=== PATIENT | male | born 1950 | race Caucasian/White ===

== ENCOUNTER 2017-04-12 19:07 | Inpatient (IN) | payer MEDICARE ==
[2017-04-12] MEDS ORDERED: GLUCOSE GEL 15 GRAM TUBE PO ×2 (21:30)
[2017-04-12] MEDS ORDERED: GLUCAGON 1 MG INJ IM (21:30)
[2017-04-12] MEDS ORDERED: ONDANSETRON 4 MG TAB PO (21:30)
[2017-04-12] MEDS ORDERED: GLUCOSE GEL 15 GRAM TUBE BUCCAL (21:30)
[2017-04-12] MEDS ORDERED: MAGNESIUM HYDROXIDE 30ML CUP PO (21:30)
[2017-04-12] MEDS ORDERED: BISACODYL 10 MG SUPP PR (21:30)
[2017-04-12] MEDS ORDERED: LACTULOSE 30ML CUP PO (21:30)
[2017-04-12] MEDS ORDERED: DEXTROSE 50% 50 ML SYRINGE IV ×2 (21:30)
[2017-04-12] MEDS: DOCUSATE SODIUM 100 MG CAP PO (21:46)
[2017-04-12] MEDS: SENNA TAB PO (21:47)
[2017-04-12] MEDS: Insulin NOVOLOG SS MILD Algorithm (SS with meals and bedtime) SC (21:47)
[2017-04-12] MEDS: ZOLPIDEM 5 MG TAB PO (21:50)
[2017-04-12] MEDS: ATORVASTATIN 40 MG TAB PO (21:50)
[2017-04-12] MEDS ORDERED: ACCU-CHEK BARLOW XX (22:00)
[2017-04-12 22:58] LABS: ADD UMIC NO; UR ASCORBIC ACID NEGATIVE (NEGATIVE); UR BILIRUBIN (Dip) NEGATIVE (NEGATIVE); UR BLOOD (Dip) NEGATIVE (NEGATIVE); UR CLARITY CLEAR (CLEAR); UR COLOR YELLOW (YELLOW); UR GLUCOSE (Dip) 1+ mg/dL (NEGATIVE); UR KETONES (Dip) NEGATIVE (NEGATIVE); UR LEUKOCYTE ESTERASE (Dip) NEGATIVE Leu/ul (NEGATIVE); UR NITRITE (Dip) NEGATIVE (NEGATIVE); UR TOTAL PROTEIN (Dip) NEGATIVE (NEGATIVE); UR UROBILINOGEN (Dip) NEGATIVE (NEGATIVE)
[2017-04-13] MEDS: ACCUCHECK AT 2AM (Patients on SS coverage) XX (02:00)
[2017-04-13 06:33] LABS: ADD MAN DIFF? NO
[2017-04-13 06:42] LABS: BASOPHIL # 0.1 10^3/ul (0.0-0.1); EOSINOPHILS # 0.4 10^3/ul (0.0-0.5); EOSINOPHILS % 5.6 % (0.0-7.0); HEMATOCRIT 41.4 % (42.0-52.0); HEMOGLOBIN 13.6 g/dl (14.0-18.0); LYMPHOCYTES # 1.2 10^3/ul (0.8-2.9); LYMPHOCYTES % 16.8 % (15.0-51.0); MEAN CORPUSCULAR HEMOGLOBIN 26.9 pg (29.0-33.0); MEAN CORPUSCULAR HGB CONC 32.9 g/dl (32.0-37.0); MEAN CORPUSCULAR VOLUME 81.8 fl (82.0-101.0); MEAN PLATELET VOLUME 9.9 fl (7.4-10.4); MONOCYTE # 0.9 10^3/ul (0.3-0.9); MONOCYTES % 11.8 % (0.0-11.0); NEUTROPHIL # 4.6 10^3/ul (1.6-7.5); NEUTROPHILS % 63.8 % (39.0-77.0); PLATELET COUNT 346 10^3/UL (140-415); RED BLOOD COUNT 5.06 10^6/ul (4.70-6.10); RED CELL DISTRIBUTION WIDTH 13.5 % (11.5-14.5)
[2017-04-13 06:42] LABS: WHITE BLOOD COUNT 7.2 10^3/ul (4.8-10.8)
[2017-04-13] MEDS: PANTOPRAZOLE (EC) 40 MG TAB PO (06:45)
[2017-04-13] MEDS: Insulin NOVOLOG SS MILD Algorithm (SS with meals and bedtime) SC ×4 (07:05→21:00)
[2017-04-13 07:19] LABS: ALANINE AMINOTRANSFERASE 32 IU/L (13-69); ALBUMIN 3.7 g/dl (3.3-4.9); ALBUMIN/GLOBULIN RATIO 1.37; ALKALINE PHOSPHATASE 53 IU/L (42-121); ANION GAP 14 (8-16); ASPARTATE AMINO TRANSFERASE 19 IU/L (15-46); BILIRUBIN,INDIRECT 0.2 mg/dl (0-1.1); BILIRUBIN,TOTAL 0.2 mg/dl (0.2-1.3); BLOOD UREA NITROGEN 20 mg/dl (7-20); CALCIUM 8.8 mg/dl (8.4-10.2); CARBON DIOXIDE 24 mmol/L (21-31); CHLORIDE 109 mmol/L (97-110); CREATININE 1.31 mg/dl (0.61-1.24); GLUCOSE 110 mg/dl (70-220); POTASSIUM 4.3 mmol/L (3.5-5.1); SODIUM 143 mmol/L (135-144); TOTAL PROTEIN 6.4 g/dl (6.1-8.1)
[2017-04-13] MEDS: ASPIRIN 81 MG TAB PO (08:26)
[2017-04-13] MEDS: CLOPIDOGREL 75 MG TAB PO (08:26)
[2017-04-13] MEDS: DOCUSATE SODIUM 100 MG CAP PO ×2 (09:00→21:00)
[2017-04-13] MEDS: BACLOFEN 10 MG TAB PO ×2 (12:13→21:09)
[2017-04-13 13:21] LABS: HEMOGLOBIN A1C 6.7 % (0-5.9)
[2017-04-13] MEDS: ACETAMINOPHEN 325 MG TAB PO ×2 (17:17→23:09)
[2017-04-13] MEDS: SENNA TAB PO (21:00)
[2017-04-13] MEDS: ZOLPIDEM 5 MG TAB PO (21:09)
[2017-04-13] MEDS: ATORVASTATIN 40 MG TAB PO (21:09)
[2017-04-14] MEDS: ACCUCHECK AT 2AM (Patients on SS coverage) XX (02:00)
[2017-04-14] MEDS: PANTOPRAZOLE (EC) 40 MG TAB PO (06:20)
[2017-04-14] MEDS: Insulin NOVOLOG SS MILD Algorithm (SS with meals and bedtime) SC ×4 (08:31→20:16)
[2017-04-14] MEDS: ASPIRIN 81 MG TAB PO (08:40)
[2017-04-14] MEDS: BACLOFEN 10 MG TAB PO ×2 (08:40→20:42)
[2017-04-14] MEDS: CLOPIDOGREL 75 MG TAB PO (08:40)
[2017-04-14] MEDS: DOCUSATE SODIUM 100 MG CAP PO ×2 (08:40→20:55)
[2017-04-14] MEDS: ACETAMINOPHEN 325 MG TAB PO (15:11)
[2017-04-14] MEDS: ZOLPIDEM 5 MG TAB PO (20:42)
[2017-04-14] MEDS: ATORVASTATIN 40 MG TAB PO (20:42)
[2017-04-14] MEDS: SENNA TAB PO (20:56)
[2017-04-15] MEDS: ACCUCHECK AT 2AM (Patients on SS coverage) XX (02:00)
[2017-04-15] MEDS ORDERED: PENDING SANTYL ORDER FOR WOUND CARE XX (03:00)
[2017-04-15] MEDS: PANTOPRAZOLE (EC) 40 MG TAB PO (05:55)
[2017-04-15] MEDS: Insulin NOVOLOG SS MILD Algorithm (SS with meals and bedtime) SC ×4 (07:05→20:42)
[2017-04-15] MEDS: metFORMIN 500 MG TAB PO (08:51)
[2017-04-15] MEDS: CLOPIDOGREL 75 MG TAB PO (08:52)
[2017-04-15] MEDS: DOCUSATE SODIUM 100 MG CAP PO ×2 (08:52→20:41)
[2017-04-15] MEDS: ASPIRIN 81 MG TAB PO (08:52)
[2017-04-15] MEDS: BACLOFEN 10 MG TAB PO (20:35)
[2017-04-15] MEDS: ATORVASTATIN 40 MG TAB PO (20:35)
[2017-04-15] MEDS: ACETAMINOPHEN 325 MG TAB PO (20:38)
[2017-04-15] MEDS: SENNA TAB PO (20:41)
[2017-04-15] MEDS: ZOLPIDEM 5 MG TAB PO (22:16)
[2017-04-16] MEDS: ACCUCHECK AT 2AM (Patients on SS coverage) XX (02:00)
[2017-04-16] MEDS: PANTOPRAZOLE (EC) 40 MG TAB PO (06:12)
[2017-04-16] MEDS: Insulin NOVOLOG SS MILD Algorithm (SS with meals and bedtime) SC ×4 (07:05→21:00)
[2017-04-16] MEDS: metFORMIN 500 MG TAB PO (08:19)
[2017-04-16] MEDS: DOCUSATE SODIUM 100 MG CAP PO ×3 (08:20→21:00)
[2017-04-16] MEDS: CLOPIDOGREL 75 MG TAB PO (08:20)
[2017-04-16] MEDS: ASPIRIN 81 MG TAB PO (08:20)
[2017-04-16] MEDS: ACETAMINOPHEN 325 MG TAB PO ×2 (14:46→23:44)
[2017-04-16] MEDS: LIDOCAINE 5% PATCH TD (15:52)
[2017-04-16] MEDS: SENNA TAB PO (21:00)
[2017-04-16] MEDS: BACLOFEN 10 MG TAB PO (21:02)
[2017-04-16] MEDS: ATORVASTATIN 40 MG TAB PO (21:02)
[2017-04-16] MEDS: ZOLPIDEM 5 MG TAB PO (21:05)
[2017-04-17] MEDS: ACCUCHECK AT 2AM (Patients on SS coverage) XX (02:00)
[2017-04-17] MEDS: PANTOPRAZOLE (EC) 40 MG TAB PO (06:07)
[2017-04-17] MEDS: Insulin NOVOLOG SS MILD Algorithm (SS with meals and bedtime) SC ×4 (07:05→20:45)
[2017-04-17] MEDS: DOCUSATE SODIUM 100 MG CAP PO ×2 (08:21→20:46)
[2017-04-17] MEDS: CLOPIDOGREL 75 MG TAB PO (08:21)
[2017-04-17] MEDS: LIDOCAINE 5% PATCH TD (08:21)
[2017-04-17] MEDS: ASPIRIN 81 MG TAB PO (08:21)
[2017-04-17] MEDS: metFORMIN 500 MG TAB PO (08:22)
[2017-04-17] MEDS: BACLOFEN 10 MG TAB PO (20:44)
[2017-04-17] MEDS: ZOLPIDEM 5 MG TAB PO ×2 (20:44→21:54)
[2017-04-17] MEDS: ATORVASTATIN 40 MG TAB PO (20:44)
[2017-04-17] MEDS: SENNA TAB PO (20:46)
[2017-04-18] MEDS: ACCUCHECK AT 2AM (Patients on SS coverage) XX (02:00)
[2017-04-18] MEDS: PANTOPRAZOLE (EC) 40 MG TAB PO (06:27)
[2017-04-18] MEDS: Insulin NOVOLOG SS MILD Algorithm (SS with meals and bedtime) SC ×4 (07:05→21:00)
[2017-04-18] MEDS: metFORMIN 500 MG TAB PO (08:22)
[2017-04-18] MEDS: DOCUSATE SODIUM 100 MG CAP PO ×3 (08:23→19:40)
[2017-04-18] MEDS: CLOPIDOGREL 75 MG TAB PO (08:23)
[2017-04-18] MEDS: LIDOCAINE 5% PATCH TD (08:23)
[2017-04-18] MEDS: ASPIRIN 81 MG TAB PO (08:23)
[2017-04-18] MEDS: ACETAMINOPHEN 325 MG TAB PO (19:32)
[2017-04-18] MEDS: BACLOFEN 10 MG TAB PO (19:33)
[2017-04-18] MEDS: SENNA TAB PO (19:40)
[2017-04-18] MEDS: ATORVASTATIN 40 MG TAB PO (20:33)
[2017-04-18] MEDS: ZOLPIDEM 5 MG TAB PO (20:38)
[2017-04-19] MEDS: ACCUCHECK AT 2AM (Patients on SS coverage) XX (02:00)
[2017-04-19] MEDS: PANTOPRAZOLE (EC) 40 MG TAB PO (06:03)
[2017-04-19 07:00] LABS: ADD MAN DIFF? NO
[2017-04-19 07:04] LABS: WHITE BLOOD COUNT 7.9 10^3/ul (4.8-10.8)
[2017-04-19 07:04] LABS: BASOPHIL # 0.1 10^3/ul (0.0-0.1); BASOPHILS % 0.9 % (0.0-2.0); EOSINOPHILS # 0.5 10^3/ul (0.0-0.5); HEMATOCRIT 38.7 % (42.0-52.0); HEMOGLOBIN 12.6 g/dl (14.0-18.0); LYMPHOCYTES # 1.1 10^3/ul (0.8-2.9); LYMPHOCYTES % 13.8 % (15.0-51.0); MEAN CORPUSCULAR HEMOGLOBIN 26.9 pg (29.0-33.0); MEAN CORPUSCULAR HGB CONC 32.6 g/dl (32.0-37.0); MEAN CORPUSCULAR VOLUME 82.5 fl (82.0-101.0); MONOCYTE # 0.8 10^3/ul (0.3-0.9); MONOCYTES % 9.6 % (0.0-11.0); NEUTROPHIL # 5.4 10^3/ul (1.6-7.5); NEUTROPHILS % 69.1 % (39.0-77.0); PLATELET COUNT 410 10^3/UL (140-415); RED BLOOD COUNT 4.69 10^6/ul (4.70-6.10); RED CELL DISTRIBUTION WIDTH 13.5 % (11.5-14.5)
[2017-04-19] MEDS: Insulin NOVOLOG SS MILD Algorithm (SS with meals and bedtime) SC ×4 (07:05→20:33)
[2017-04-19 07:26] LABS: ANION GAP 14 (8-16); BLOOD UREA NITROGEN 19 mg/dl (7-20); CALCIUM 8.7 mg/dl (8.4-10.2); CARBON DIOXIDE 24 mmol/L (21-31); CHLORIDE 109 mmol/L (97-110); CREATININE 1.39 mg/dl (0.61-1.24); GLUCOSE 98 mg/dl (70-220); POTASSIUM 4.2 mmol/L (3.5-5.1); SODIUM 143 mmol/L (135-144)
[2017-04-19 07:29] LABS: PHOSPHORUS 3.6 mg/dl (2.5-4.9)
[2017-04-19] MEDS: ASPIRIN 81 MG TAB PO (08:36)
[2017-04-19] MEDS: DOCUSATE SODIUM 100 MG CAP PO ×2 (08:36→20:34)
[2017-04-19] MEDS: metFORMIN 500 MG TAB PO (08:36)
[2017-04-19] MEDS: CLOPIDOGREL 75 MG TAB PO (08:36)
[2017-04-19] MEDS: LIDOCAINE 5% PATCH TD (08:37)
[2017-04-19] MEDS: BACLOFEN 10 MG TAB PO (20:26)
[2017-04-19] MEDS: ATORVASTATIN 40 MG TAB PO (20:26)
[2017-04-19] MEDS: ZOLPIDEM 5 MG TAB PO (20:32)
[2017-04-19] MEDS: SENNA TAB PO (20:34)
[2017-04-20] MEDS: ACCUCHECK AT 2AM (Patients on SS coverage) XX (02:00)
[2017-04-20] MEDS: PANTOPRAZOLE (EC) 40 MG TAB PO (06:58)
[2017-04-20] MEDS: Insulin NOVOLOG SS MILD Algorithm (SS with meals and bedtime) SC ×4 (07:05→21:00)
[2017-04-20] MEDS: DOCUSATE SODIUM 100 MG CAP PO ×2 (08:29→20:40)
[2017-04-20] MEDS: ASPIRIN 81 MG TAB PO (08:29)
[2017-04-20] MEDS: metFORMIN 500 MG TAB PO (08:29)
[2017-04-20] MEDS: CLOPIDOGREL 75 MG TAB PO (08:29)
[2017-04-20] MEDS: LIDOCAINE 5% PATCH TD (08:29)
[2017-04-20] MEDS: HYDROCODONE/APAP (5/325) TAB GTB (14:42)
[2017-04-20] MEDS: ATORVASTATIN 40 MG TAB PO (20:32)
[2017-04-20] MEDS: BACLOFEN 10 MG TAB PO (20:32)
[2017-04-20] MEDS: ZOLPIDEM 5 MG TAB PO (20:37)
[2017-04-20] MEDS: SENNA TAB PO (20:40)
[2017-04-21] MEDS: ACCUCHECK AT 2AM (Patients on SS coverage) XX (02:00)
[2017-04-21] MEDS: PANTOPRAZOLE (EC) 40 MG TAB PO (06:32)
[2017-04-21] MEDS: Insulin NOVOLOG SS MILD Algorithm (SS with meals and bedtime) SC ×4 (07:05→20:41)
[2017-04-21] MEDS: metFORMIN 500 MG TAB PO (08:22)
[2017-04-21] MEDS: DOCUSATE SODIUM 100 MG CAP PO ×2 (09:00→20:39)
[2017-04-21] MEDS: CLOPIDOGREL 75 MG TAB PO (09:46)
[2017-04-21] MEDS: ASPIRIN 81 MG TAB PO (09:46)
[2017-04-21] MEDS: LIDOCAINE 5% PATCH TD (09:47)
[2017-04-21] MEDS: ATORVASTATIN 40 MG TAB PO (20:19)
[2017-04-21] MEDS: HYDROCODONE/APAP (5/325) TAB GTB (20:20)
[2017-04-21] MEDS: BACLOFEN 10 MG TAB PO (20:20)
[2017-04-21] MEDS: SENNA TAB PO (20:39)
[2017-04-22] MEDS: ACCUCHECK AT 2AM (Patients on SS coverage) XX (02:00)
[2017-04-22] MEDS: PANTOPRAZOLE (EC) 40 MG TAB PO (06:38)
[2017-04-22] MEDS: Insulin NOVOLOG SS MILD Algorithm (SS with meals and bedtime) SC ×3 (07:05→17:05)
[2017-04-22] MEDS: CLOPIDOGREL 75 MG TAB PO (08:36)
[2017-04-22] MEDS: ASPIRIN 81 MG TAB PO (08:36)
[2017-04-22] MEDS: metFORMIN 500 MG TAB PO (08:36)
[2017-04-22] MEDS: DOCUSATE SODIUM 100 MG CAP PO ×3 (08:38→21:00)
[2017-04-22] MEDS: LIDOCAINE 5% PATCH TD (10:33)
[2017-04-22] MEDS: BACLOFEN 10 MG TAB PO (20:56)
[2017-04-22] MEDS: ATORVASTATIN 40 MG TAB PO (20:56)
[2017-04-22] MEDS: ZOLPIDEM 5 MG TAB PO (20:58)
[2017-04-22] MEDS: SENNA TAB PO (21:00)
[2017-04-23] MEDS: ACCUCHECK AT 2AM (Patients on SS coverage) XX (02:00)
[2017-04-23] MEDS: PANTOPRAZOLE (EC) 40 MG TAB PO (06:34)
[2017-04-23] MEDS: INSULIN ASPART [NOVOLOG] 3 ML PEN SC (07:51)
[2017-04-23] MEDS: metFORMIN 500 MG TAB PO (08:37)
[2017-04-23] MEDS: LIDOCAINE 5% PATCH TD (08:37)
[2017-04-23] MEDS: CLOPIDOGREL 75 MG TAB PO (08:37)
[2017-04-23] MEDS: ASPIRIN 81 MG TAB PO (08:38)
[2017-04-23] MEDS: DOCUSATE SODIUM 100 MG CAP PO ×2 (08:39→20:59)
[2017-04-23] MEDS: ATORVASTATIN 40 MG TAB PO (20:57)
[2017-04-23] MEDS: BACLOFEN 10 MG TAB PO (20:58)
[2017-04-23] MEDS: HYDROCODONE/APAP (5/325) TAB GTB (20:58)
[2017-04-23] MEDS: ZOLPIDEM 5 MG TAB PO (20:58)
[2017-04-23] MEDS: SENNA TAB PO (20:59)
[2017-04-24] MEDS: ACCUCHECK AT 2AM (Patients on SS coverage) XX (03:00)
[2017-04-24] MEDS: PANTOPRAZOLE (EC) 40 MG TAB PO (06:16)
[2017-04-24] MEDS: INSULIN ASPART [NOVOLOG] 3 ML PEN SC (09:00)
[2017-04-24] MEDS: CLOPIDOGREL 75 MG TAB PO (09:00)
[2017-04-24] MEDS: DOCUSATE SODIUM 100 MG CAP PO ×3 (09:00→20:00)
[2017-04-24] MEDS: LIDOCAINE 5% PATCH TD (09:01)
[2017-04-24] MEDS: metFORMIN 500 MG TAB PO (09:01)
[2017-04-24] MEDS: ASPIRIN 81 MG TAB PO (09:01)
[2017-04-24] MEDS: ZOLPIDEM 5 MG TAB PO (19:59)
[2017-04-24] MEDS: HYDROCODONE/APAP (5/325) TAB GTB (20:00)
[2017-04-24] MEDS: BACLOFEN 10 MG TAB PO (20:00)
[2017-04-24] MEDS: ATORVASTATIN 40 MG TAB PO (20:00)
[2017-04-24] MEDS: SENNA TAB PO (20:01)
[2017-04-25] MEDS: ACCUCHECK AT 2AM (Patients on SS coverage) XX (02:00)
[2017-04-25] MEDS: PANTOPRAZOLE (EC) 40 MG TAB PO (06:20)
[2017-04-25 07:39] LABS: ADD MAN DIFF? NO
[2017-04-25 07:43] LABS: BASOPHIL # 0.1 10^3/ul (0.0-0.1); EOSINOPHILS # 0.5 10^3/ul (0.0-0.5); EOSINOPHILS % 7.1 % (0.0-7.0); HEMATOCRIT 37.9 % (42.0-52.0); HEMOGLOBIN 12.3 g/dl (14.0-18.0); LYMPHOCYTES # 1.3 10^3/ul (0.8-2.9); LYMPHOCYTES % 18.8 % (15.0-51.0); MEAN CORPUSCULAR HEMOGLOBIN 26.5 pg (29.0-33.0); MEAN CORPUSCULAR HGB CONC 32.5 g/dl (32.0-37.0); MEAN CORPUSCULAR VOLUME 81.7 fl (82.0-101.0); MEAN PLATELET VOLUME 9.8 fl (7.4-10.4); MONOCYTE # 0.7 10^3/ul (0.3-0.9); MONOCYTES % 10.5 % (0.0-11.0); NEUTROPHIL # 4.4 10^3/ul (1.6-7.5); NEUTROPHILS % 61.9 % (39.0-77.0); PLATELET COUNT 450 10^3/UL (140-415); RED BLOOD COUNT 4.64 10^6/ul (4.70-6.10); RED CELL DISTRIBUTION WIDTH 13.1 % (11.5-14.5)
[2017-04-25] MEDS: INSULIN ASPART [NOVOLOG] 3 ML PEN SC (08:07)
[2017-04-25 08:08] LABS: ANION GAP 16 (8-16); BLOOD UREA NITROGEN 18 mg/dl (7-20); CALCIUM 8.9 mg/dl (8.4-10.2); CARBON DIOXIDE 26 mmol/L (21-31); CHLORIDE 107 mmol/L (97-110); CREATININE 1.35 mg/dl (0.61-1.24); GLUCOSE 84 mg/dl (70-220); SODIUM 145 mmol/L (135-144)
[2017-04-25 08:10] LABS: MAGNESIUM 1.9 mg/dl (1.7-2.5)
[2017-04-25 08:10] LABS: PHOSPHORUS 3.9 mg/dl (2.5-4.9)
[2017-04-25] MEDS: LIDOCAINE 5% PATCH TD (08:57)
[2017-04-25] MEDS: metFORMIN 500 MG TAB PO (08:57)
[2017-04-25] MEDS: CLOPIDOGREL 75 MG TAB PO (08:57)
[2017-04-25] MEDS: ASPIRIN 81 MG TAB PO (08:57)
[2017-04-25] MEDS: DOCUSATE SODIUM 100 MG CAP PO ×2 (09:00→20:17)
[2017-04-25] MEDS: CARISOPRODOL 350 MG TAB PO (20:16)
[2017-04-25] MEDS: ATORVASTATIN 40 MG TAB PO (20:16)
[2017-04-25] MEDS: BACLOFEN 10 MG TAB PO (20:16)
[2017-04-25] MEDS: SENNA TAB PO (20:17)
[2017-04-25] MEDS: ZOLPIDEM 5 MG TAB PO (20:33)
[2017-04-26] MEDS: ACCUCHECK AT 2AM (Patients on SS coverage) XX (02:00)
[2017-04-26] MEDS: PANTOPRAZOLE (EC) 40 MG TAB PO (07:03)
[2017-04-26] MEDS: INSULIN ASPART [NOVOLOG] 3 ML PEN SC (08:07)
[2017-04-26] MEDS: ASPIRIN 81 MG TAB PO (08:08)
[2017-04-26] MEDS: CLOPIDOGREL 75 MG TAB PO (08:08)
[2017-04-26] MEDS: metFORMIN 500 MG TAB PO (08:08)
[2017-04-26] MEDS: LIDOCAINE 5% PATCH TD (08:09)
[2017-04-26] MEDS: DOCUSATE SODIUM 100 MG CAP PO ×2 (08:13→21:00)
[2017-04-26] MEDS: BACLOFEN 10 MG TAB PO ×2 (11:44→21:11)
[2017-04-26] MEDS: SENNA TAB PO (21:00)
[2017-04-26] MEDS: ATORVASTATIN 40 MG TAB PO (21:10)
[2017-04-26] MEDS: ZOLPIDEM 5 MG TAB PO (21:11)
[2017-04-27] MEDS: ACCUCHECK AT 2AM (Patients on SS coverage) XX (02:00)
[2017-04-27] MEDS: PANTOPRAZOLE (EC) 40 MG TAB PO (07:00)
[2017-04-27] MEDS: INSULIN ASPART [NOVOLOG] 3 ML PEN SC (08:11)
[2017-04-27] MEDS: CLOPIDOGREL 75 MG TAB PO (08:12)
[2017-04-27] MEDS: BACLOFEN 10 MG TAB PO ×2 (08:12→20:17)
[2017-04-27] MEDS: ASPIRIN 81 MG TAB PO (08:12)
[2017-04-27] MEDS: metFORMIN 500 MG TAB PO (08:12)
[2017-04-27] MEDS: LIDOCAINE 5% PATCH TD (08:14)
[2017-04-27] MEDS: DOCUSATE SODIUM 100 MG CAP PO ×2 (09:00→20:21)
[2017-04-27] MEDS: ZOLPIDEM 5 MG TAB PO (20:17)
[2017-04-27] MEDS: ATORVASTATIN 40 MG TAB PO (20:17)
[2017-04-27] MEDS: SENNA TAB PO (20:22)
[2017-04-28] MEDS: ACCUCHECK AT 2AM (Patients on SS coverage) XX (02:00)
[2017-04-28] MEDS: PANTOPRAZOLE (EC) 40 MG TAB PO (06:26)
[2017-04-28] MEDS: metFORMIN 500 MG TAB PO (08:04)
[2017-04-28] MEDS: INSULIN ASPART [NOVOLOG] 3 ML PEN SC (08:15)
[2017-04-28] MEDS: DOCUSATE SODIUM 100 MG CAP PO (09:00)
[2017-04-28] MEDS: CLOPIDOGREL 75 MG TAB PO (09:15)
[2017-04-28] MEDS: ASPIRIN 81 MG TAB PO (09:15)
[2017-04-28] MEDS: BACLOFEN 10 MG TAB PO (09:15)
[2017-04-28] MEDS: LIDOCAINE 5% PATCH TD (09:16)
== END 2017-04-28 13:00 | DRG 57 ==
LOC: VRC 04-18 12:44
PROC: F07Z9FZ Gait Training/Functional Ambulation Treatment using Assistive, Adaptive, Supportive or Protective Equipment (ICD-10-PCS; principal; 2017-04-12)
PROC: F07Z5FZ Bed Mobility Treatment using Assistive, Adaptive, Supportive or Protective Equipment (ICD-10-PCS; 2017-04-12)
PROC: F07Z8FZ Transfer Training Treatment using Assistive, Adaptive, Supportive or Protective Equipment (ICD-10-PCS; 2017-04-12)
PROC: F08Z2FZ Grooming/Personal Hygiene Treatment using Assistive, Adaptive, Supportive or Protective Equipment (ICD-10-PCS; 2017-04-12)
PROC: F08Z0FZ Bathing/Showering Techniques Treatment using Assistive, Adaptive, Supportive or Protective Equipment (ICD-10-PCS; 2017-04-12)
PROC: F08Z1FZ Dressing Techniques Treatment using Assistive, Adaptive, Supportive or Protective Equipment (ICD-10-PCS; 2017-04-12)
DX: I69.354 Hemiplegia and hemiparesis following cerebral infarction affecting left non-dominant side (principal); N17.9 Acute kidney failure, unspecified; E11.22 Type 2 diabetes mellitus with diabetic chronic kidney disease; F06.8 Other specified mental disorders due to known physiological condition; E78.5 Hyperlipidemia, unspecified; I12.9 Hypertensive chronic kidney disease with stage 1 through stage 4 chronic kidney disease, or unspecified chronic kidney disease; N18.9 Chronic kidney disease, unspecified; F06.31 Mood disorder due to known physiological condition with depressive features; M62.838 Other muscle spasm; Z87.891 Personal history of nicotine dependence; Z82.3 Family history of stroke
CPT/HCPCS: 80048; 80053; 81003; 82962; 83036; 83735; 84100; 85025; 87081; 87086; 92610; 97110; 97112; 97116; 97150; 97163; 97167; 97530; 97535; 97542